=== PATIENT | female | born 1985 | race Caucasian/White ===

== ENCOUNTER 2020-10-25 15:35 | Emergency (ER) | payer MEDICAID ==
[~2020-10-25] VITALS: Ht 165.1 cm; Wt 64.0 kg
[~2020-10-25 15:35] MED LIST: PRE-NATAL VITAMINS
[2020-10-25 17:31] LABS: HCG SCREEN NEGATIVE
[2020-10-25 17:33] VITALS: BP 122/68
== END 2020-10-25 17:34 | disposition home or self-care (01) ==
LOC: ER 15:35
DX: R55 Syncope and collapse (principal); I10 Essential (primary) hypertension; E11.9 Type 2 diabetes mellitus without complications; Z98.890 Other specified postprocedural states
CPT/HCPCS: 81025; 84703; 93005; 99284

== ENCOUNTER 2021-04-01 11:00 | Emergency (ER) | payer MEDICAID ==
[~2021-04-01] VITALS: Ht 165.1 cm; Wt 89.0 kg
[2021-04-01 11:06] VITALS: BP 156/97
[2021-04-01] MEDS ORDERED: NAPR500T7 MT (11:43)
== END 2021-04-01 11:44 | disposition home or self-care (01) ==
LOC: ER 11:00
DX: G56.02 Carpal tunnel syndrome, left upper limb (principal); Z98.890 Other specified postprocedural states
CPT/HCPCS: 99281

== ENCOUNTER 2023-01-03 21:44 | Emergency (ER) | payer SELFPAY ==
[~2023-01-03] VITALS: Ht 160 cm; Wt 78.1 kg
[~2023-01-03 21:44] MED LIST changes: +NAPR500T7 MT
[2023-01-03 22:07] VITALS: BP 148/86; O2SAT 98
[2023-01-03 22:09] VITALS: PULSE 115; RESP 20; TEMP 98.4
== END 2023-01-04 04:58 | disposition left against medical advice (07) ==
LOC: ER 21:44
DX: Z53.21 Procedure and treatment not carried out due to patient leaving prior to being seen by health care provider (principal)
CPT/HCPCS: 99281

== ENCOUNTER 2023-01-25 03:36 | Emergency (ER) | payer MEDICAID ==
[~2023-01-25] VITALS: Ht 160 cm; Wt 76.0 kg
[2023-01-25 03:45] VITALS: O2SAT 100
[2023-01-25 04:19] LABS: BASOPHILS % 1.9 % (0.0-2.0); EOSINOPHILS % 0.1 % (0.0-5.0); HEMOGLOBIN. 8.4 g/dL (12.0-16.0); LYMPHOCYTES % 38.6 % (20.0-50.0); MEAN CORPUSCULAR HEMOGLOBIN 17.9 pg (28.0-32.0); MEAN CORPUSCULAR HGB CONC 29.9 g/dL (31.0-37.0); MEAN CORPUSCULAR VOLUME 59.8 fL (81.0-99.0); MONOCYTES % 11.5 % (2.0-8.0); NEUTROPHILS % 47.9 % (40.0-76.0); RED BLOOD CELL COUNT 4.68 mill/uL (4.2-5.4); RED CELL DISTRIBUTION WIDTH 23.5 % (11.6-14.6); WHITE BLOOD COUNT 5.5 x1000/uL (4.5-11.0)
[2023-01-25 04:32] LABS: CHLORIDE 97 mEq/L (98-107); INDEX HEMOLYSI 1 (1-3); INDEX ICTERIC 1 (1-4); INDEX LIPEMIC 1 (1-3); POTASSIUM 3.4 mEq/L (3.5-5.1); SODIUM 131 mEq/L (136-145)
[2023-01-25 04:34] LABS: ADD RBC MORPHOLOGY YES; DIFFERENTIAL COMMENT 1
[2023-01-25 04:42] LABS: ALANINE AMINOTRANSFERASE 82 IU/L (13-61); ALBUMIN 3.8 g/dL (3.4-5.0); ASPARTATE AMINOTRANSFERASE 92 IU/L (15-37); BILIRUBIN TOTAL 0.7 mg/dL (0.1-1.0); CALCIUM 9.2 mg/dL (8.5-10.1); CARBON DIOXIDE 22 mEq/L (21-32); CREATININE 0.4 mg/dL (0.6-1.3); GLUCOSE 298 mg/dL (70-105); PROTEIN TOTAL 8.5 g/dL (6.0-8.3); UREA NITROGEN BLOOD 3 mg/dL (7-21)
[2023-01-25] MEDS ORDERED: SODIUM CHLORIDE 0.9% 1,000 ML IV ONE (06:30)
[2023-01-25 06:59] LABS: HEMOGLOBIN 7.5 g/dL (12.0-16.0); MEAN CORPUSCULAR HEMOGLOBIN 17.1 pg (28.0-32.0); MEAN CORPUSCULAR HGB CONC 28.8 g/dL (31.0-37.0); MEAN CORPUSCULAR VOLUME 59.6 fL (81.0-99.0); PLATELET 102 x1000/uL (130-400); RED BLOOD CELL COUNT 4.37 mill/uL (4.2-5.4); RED CELL DISTRIBUTION WIDTH 22.6 % (11.6-14.6); WHITE BLOOD COUNT 4.2 x1000/uL (4.5-11.0)
[2023-01-25 07:02] LABS: CLARITY URINE CLEAR (CLEAR); COLOR URINE YELLOW (YELLOW); GLUCOSE URINE 3+ (NEGATIVE); KETONES URINE NEGATIVE (NEGATIVE); LEUKOCYTE ESTERASE URINE TRACE (NEGATIVE); NITRITE URINE NEGATIVE (NEGATIVE); OCCULT BLOOD URINE TRACE (NEGATIVE); PH URINE 5.5 (4.5-8.0); PROTEIN URINE NEGATIVE (NEGATIVE); SPECIFIC GRAVITY URINE 1.008 (1.005-1.030); UROBILINOGEN URINE 0.2 E.U./dL (0.2-1.0)
[2023-01-25 08:18] LABS: PLATELET 106 x1000/uL (130-400)
[2023-01-25 08:20] LABS: HYPOCHROMASIA 2+; MICROCYTOSIS 2+; PLATELET ESTIMATE DECREASED
[2023-01-25 08:46] LABS: BACTERIA URINE NONE SEEN; RBC URINE 0-2 /hpf (0-2); SQUAMOUS EPITHELIAL CELL URINE FEW /lpf (RARE/1+); WBC URINE 0-2 /hpf (0-2)
[2023-01-25] MEDS ORDERED: IRON1CAP3 MT (10:15)
[2023-01-25 10:30] VITALS: BP 138/91; PULSE 100; RESP 15; TEMP 98.4
== END 2023-01-25 10:32 | disposition home or self-care (01) ==
LOC: ER 04:41
DX: F10.129 Alcohol abuse with intoxication, unspecified (principal); D50.9 Iron deficiency anemia, unspecified; E11.9 Type 2 diabetes mellitus without complications; I10 Essential (primary) hypertension; Z98.890 Other specified postprocedural states; Y90.7 Blood alcohol level of 200-239 mg/100 ml
CPT/HCPCS: 80053; 81003; 81025; 80320; 82270; 83690; 85027; 85025; 36415; 74176; 76830; 76856; 93005; 96360; 96361; 99285; J7030; Z7610; G0480

== ENCOUNTER 2024-01-16 20:49 | Inpatient (IN) | payer SELFPAY ==
[~2024-01-16] VITALS: Ht 157.5 cm; Wt 68.5 kg
[~2024-01-16 20:49] MED LIST changes: +IRON1CAP3 MT
[2024-01-16] MEDS: SODIUM CHLORIDE 0.9% 1,000 ML IV ONE (21:25)
[2024-01-16 21:33] LABS: HEMATOCRIT. 39.6 % (36.0-48.0); HEMOGLOBIN. 13.2 g/dL (12.0-16.0); MEAN CORPUSCULAR HEMOGLOBIN 29.4 pg (28.0-32.0); MEAN CORPUSCULAR HGB CONC 33.3 g/dL (31.0-37.0); MEAN CORPUSCULAR VOLUME 88.2 fL (81.0-99.0); MEAN PLATELET VOLUME 9.8 fl (7.4-10.4); PLATELET 99 x1000/uL (130-400); RED BLOOD CELL COUNT 4.49 mill/uL (4.2-5.4); WHITE BLOOD COUNT 5.9 x1000/uL (4.5-11.0)
[2024-01-16 21:35] LABS: DIFFERENTIAL COMMENT 1
[2024-01-16 21:39] LABS: CHLORIDE 98 mEq/L (98-107); SODIUM 132 mEq/L (136-145)
[2024-01-16 21:40] LABS: CARBON DIOXIDE 24 mEq/L (21-32)
[2024-01-16 21:41] LABS: CALCIUM 9.5 mg/dL (8.7-10.4)
[2024-01-16 21:42] LABS: PROTHROMBIN TIME 10.7 sec (9.6-11.0)
[2024-01-16 21:45] LABS: CREATININE 0.8 mg/dL (0.6-1.0); GLUCOSE 184 mg/dL (70-105)
[2024-01-16 21:46] LABS: UREA NITROGEN BLOOD 19 mg/dL (9-23)
[2024-01-16 21:47] LABS: HCG SCREEN NEGATIVE; TROPONIN I HIGH SENSITIVITY 5 ng/L (3.0-34)
[2024-01-16 22:26] LABS: ETHANOL BLOOD < 10 mg/dL (<10); POTASSIUM 2.8 mEq/L (3.5-5.1)
[2024-01-16 22:38] LABS: *AMPHETAMINES SCREEN URINE NEGATIVE (NEGATIVE); *BARBITURATES SCREEN URINE NEGATIVE (NEGATIVE); *BENZODIAZEPINES SCREEN URINE NEGATIVE (NEGATIVE); *COCAINE SCREEN URINE NEGATIVE (NEGATIVE); METHADONE URINE SCREEN NEGATIVE (NEGATIVE); OPIATES URINE SCREEN NEGATIVE (NEGATIVE)
[2024-01-16 22:39] LABS: CANNABINOID URINE SCREEN NEGATIVE (NEGATIVE); ECSTASY MDMA SCREEN URINE NEGATIVE (NEGATIVE); PHENCYCLIDINE URINE SCREEN NEGATIVE (NEGATIVE)
[2024-01-16 22:51] LABS: ANISOCYTOSIS 1+; PLATELET ESTIMATE DECREASED
[2024-01-16] MEDS: POTASSIUM CHLORIDE 20MEQ TABLET SR PO NR (22:55)
[2024-01-16] MEDS: KCL 20MEQ/100ML PREMIX 100 ML IV SCH (22:55)
[2024-01-16 23:25] VITALS: BP_SYST 154; BP_SYST 159; BP_DIAS 84; PULSE 70; RESP 18; TEMP 37.7808; TEMP 37.808; O2SAT 100
[2024-01-17] VITALS: BP 154/84; PULSE 70; RESP 18; TEMP 37.7808; O2SAT 100
[2024-01-17] MEDS ORDERED: LISI20TA31 MT (00:08)
[2024-01-17 00:22] LABS: TROPONIN I HIGH SENSITIVITY 7 ng/L (3.0-34)
[2024-01-17 04:00] VITALS: BP 147/78; PULSE 68; RESP 18; TEMP 37.16964; O2SAT 98
[2024-01-17] MEDS ORDERED: MECLIZINE 25MG TABLET PO PRN (04:15)
[2024-01-17] MEDS: BLOOD SUGAR DIAGNOSTIC STRIP TEST SCH (06:10)
[2024-01-17 08:00] VITALS: BP 156/87; PULSE 68; RESP 18; TEMP 36.61404; O2SAT 100
[2024-01-17] MEDS: METFORMIN HCL 500MG TABLET PO SCH (09:58)
[2024-01-17] MEDS ORDERED: DEXTROSE 50% WATER 50ML SYRINGE IV PRN (11:00)
[2024-01-17 12:00] VITALS: BP 146/89; PULSE 94; RESP 19; TEMP 36.50292; O2SAT 99
[2024-01-17 12:07] LABS: HEMATOCRIT. 39.6 % (36.0-48.0); HEMOGLOBIN. 13.1 g/dL (12.0-16.0); MEAN CORPUSCULAR HEMOGLOBIN 29.3 pg (28.0-32.0); MEAN CORPUSCULAR VOLUME 88.6 fL (81.0-99.0); MEAN PLATELET VOLUME 10.4 fl (7.4-10.4); PLATELET 99 x1000/uL (130-400); RED BLOOD CELL COUNT 4.46 mill/uL (4.2-5.4); RED CELL DISTRIBUTION WIDTH 17.6 % (11.6-14.6); WHITE BLOOD COUNT 4.9 x1000/uL (4.5-11.0)
[2024-01-17 12:09] LABS: DIFFERENTIAL COMMENT 1
[2024-01-17] MEDS ORDERED: BLOOD SUGAR DIAGNOSTIC STRIP TEST SCH (12:20)
[2024-01-17 12:33] LABS: CARBON DIOXIDE 24 mEq/L (21-32); CHLORIDE 101 mEq/L (98-107); POTASSIUM 4.6 mEq/L (3.5-5.1); SODIUM 133 mEq/L (136-145)
[2024-01-17 12:34] LABS: CALCIUM 9.5 mg/dL (8.7-10.4)
[2024-01-17 12:39] LABS: GLUCOSE 188 mg/dL (70-105); TRIGLYCERIDE 75 mg/dL (0-150); UREA NITROGEN BLOOD 11 mg/dL (9-23)
[2024-01-17 12:40] LABS: CHOLESTEROL 195 mg/dL (<200); LDL CHOLESTEROL 146 mg/dL (5-100)
[2024-01-17 12:41] LABS: HDL CHOLESTEROL 47 mg/dL (>65)
[2024-01-17 12:45] LABS: CREATININE 0.5 mg/dL (0.6-1.0)
[2024-01-17] MEDS ORDERED: INSULIN LISPRO 100 UNITS/ML SUBCUT SCH (12:50)
[2024-01-17 13:22] LABS: ANISOCYTOSIS 1+; PLATELET ESTIMATE SLIGHTLY DECREASED
[2024-01-17] MEDS: INSULIN LISPRO (MEDIUM DOSE) 100 UNITS/ML SUBCUT SCH (13:56)
[2024-01-17 16:00] VITALS: BP 130/89; PULSE 96; RESP 18; TEMP 36.50292; O2SAT 98
[2024-01-17 20:00] VITALS: BP 145/77; PULSE 73; RESP 19; TEMP 36.72516; O2SAT 100
[2024-01-17] MEDS: HYDROCODONE/ACETAMINOPHEN 5/325MG TABLET PO PRN (22:32)
[2024-01-17] MEDS: ZOLPIDEM TARTRATE 5MG TABLET PO PRN (22:50)
[2024-01-18] VITALS: BP 134/93; PULSE 99; RESP 19; TEMP 37.2252; O2SAT 100
[2024-01-18 04:00] VITALS: BP 123/78; PULSE 76; RESP 19; TEMP 36.72516; O2SAT 100
[2024-01-18 06:45] LABS: CARBON DIOXIDE 24 mEq/L (21-32); CHLORIDE 104 mEq/L (98-107); POTASSIUM 3.5 mEq/L (3.5-5.1); SODIUM 136 mEq/L (136-145)
[2024-01-18 06:46] LABS: CALCIUM 9.5 mg/dL (8.7-10.4)
[2024-01-18 06:51] LABS: CREATININE 0.5 mg/dL (0.6-1.0); GLUCOSE 184 mg/dL (70-105); UREA NITROGEN BLOOD 10 mg/dL (9-23)
[2024-01-18 08:00] VITALS: BP 130/79; PULSE 85; RESP 19; TEMP 36.50292; O2SAT 100
[2024-01-18] MEDS: LISINOPRIL 20MG TABLET PO SCH (08:38)
[2024-01-18 12:00] VITALS: BP 127/83; PULSE 76; RESP 20; TEMP 36.61404; O2SAT 99
[2024-01-18] MEDS: CYCLOBENZAPRINE 10MG TABLET PO SCH (13:07)
[2024-01-18 13:08] LABS: HEMATOCRIT. 38.3 % (36.0-48.0); HEMOGLOBIN. 12.8 g/dL (12.0-16.0); MEAN CORPUSCULAR HEMOGLOBIN 29.5 pg (28.0-32.0); MEAN CORPUSCULAR HGB CONC 33.3 g/dL (31.0-37.0); MEAN CORPUSCULAR VOLUME 88.5 fL (81.0-99.0); MEAN PLATELET VOLUME 10.6 fl (7.4-10.4); PLATELET 89 x1000/uL (130-400); RED BLOOD CELL COUNT 4.33 mill/uL (4.2-5.4); RED CELL DISTRIBUTION WIDTH 17.3 % (11.6-14.6); WHITE BLOOD COUNT 4.6 x1000/uL (4.5-11.0)
[2024-01-18 13:10] LABS: DIFFERENTIAL COMMENT 1
[2024-01-18] MEDS ORDERED: NALOXONE HCL 0.4MG/ML VIAL IV PRN (13:15)
[2024-01-18 13:20] LABS: CHLORIDE 102 mEq/L (98-107); POTASSIUM 3.5 mEq/L (3.5-5.1); SODIUM 136 mEq/L (136-145)
[2024-01-18 13:21] LABS: CARBON DIOXIDE 27 mEq/L (21-32)
[2024-01-18 13:22] LABS: CALCIUM 9.9 mg/dL (8.7-10.4)
[2024-01-18 13:25] LABS: UREA NITROGEN BLOOD 12 mg/dL (9-23)
[2024-01-18 13:26] LABS: ALANINE AMINOTRANSFERASE 67 IU/L (10-49); CREATININE 0.6 mg/dL (0.6-1.0); GLUCOSE 212 mg/dL (70-105); PROTEIN TOTAL 6.8 g/dL (6.0-8.3)
[2024-01-18 13:27] LABS: ASPARTATE AMINOTRANSFERASE 57 IU/L (<34); LDL CHOLESTEROL 125 mg/dL (5-100); TRIGLYCERIDE 111 mg/dL (0-150)
[2024-01-18 13:28] LABS: ALBUMIN 4.1 g/dL (3.2-4.8); CHOLESTEROL 176 mg/dL (<200)
[2024-01-18 13:29] LABS: BILIRUBIN DIRECT 0.4 mg/dL (<=3.0); BILIRUBIN TOTAL 0.9 mg/dL (0.1-1.0); HDL CHOLESTEROL 38 mg/dL (>65)
[2024-01-18 14:10] LABS: D-DIMER 0.3 mg/L FEU (<0.50); INR 0.9; PROTHROMBIN TIME 10.3 sec (9.6-11.0)
[2024-01-18 14:40] LABS: ANISOCYTOSIS 1+; PLATELET ESTIMATE SLIGHTLY DECREASED
[2024-01-18 19:56] VITALS: BP 150/95; PULSE 83; RESP 20; TEMP 37.11408; O2SAT 100
[2024-01-18] MEDS: ATORVASTATIN CALCIUM 40MG TABLET PO SCH (21:24)
[2024-01-19] VITALS: BP 136/73; PULSE 67; RESP 20; TEMP 36.6696; O2SAT 100
[2024-01-19 02:00] VITALS: BP 129/70; PULSE 69; RESP 20; TEMP 36.89184; O2SAT 99
[2024-01-19] MEDS ORDERED: GADOTERATE MEGLUMINE 5 MMOL/10 ML VIAL IV ONE (09:58)
[2024-01-19 12:00] VITALS: BP 121/77; PULSE 88; RESP 19; TEMP 36.16956; O2SAT 98
[2024-01-19 16:00] VITALS: BP 139/79; PULSE 65; RESP 18; TEMP 36.3918; O2SAT 100
[2024-01-20 08:00] VITALS: BP 117/88; PULSE 84; RESP 17; TEMP 35.5584; O2SAT 100
[2024-01-20 12:00] VITALS: BP 146/91; PULSE 91; RESP 18; TEMP 36.61404; O2SAT 99
[2024-01-20 12:15] LABS: HEMATOCRIT. 38.6 % (36.0-48.0); HEMOGLOBIN. 12.8 g/dL (12.0-16.0); MEAN CORPUSCULAR HEMOGLOBIN 29.2 pg (28.0-32.0); MEAN CORPUSCULAR HGB CONC 33.2 g/dL (31.0-37.0); MEAN PLATELET VOLUME 10.4 fl (7.4-10.4); PLATELET 108 x1000/uL (130-400); RED BLOOD CELL COUNT 4.38 mill/uL (4.2-5.4); RED CELL DISTRIBUTION WIDTH 17.6 % (11.6-14.6); WHITE BLOOD COUNT 4.5 x1000/uL (4.5-11.0)
[2024-01-20 12:24] LABS: DIFFERENTIAL COMMENT 1
[2024-01-20 12:25] LABS: CARBON DIOXIDE 28 mEq/L (21-32); CHLORIDE 99 mEq/L (98-107); POTASSIUM 3.6 mEq/L (3.5-5.1); SODIUM 133 mEq/L (136-145)
[2024-01-20 12:26] LABS: CALCIUM 9.7 mg/dL (8.7-10.4)
[2024-01-20 12:30] LABS: CREATININE 0.5 mg/dL (0.6-1.0); GLUCOSE 187 mg/dL (70-105)
[2024-01-20 12:31] LABS: UREA NITROGEN BLOOD 6 mg/dL (9-23)
[2024-01-20 12:33] LABS: PHOSPHORUS 4.3 mg/dL (2.5-4.9)
[2024-01-20 15:51] LABS: PLATELET ESTIMATE SLIGHTLY DECREASED
[2024-01-20 16:00] VITALS: BP 112/80; PULSE 105; RESP 16; TEMP 38.50308; O2SAT 99
[2024-01-20] MEDS: ACETAMINOPHEN 325MG TABLET PO PRN (16:41)
[2024-01-20 20:00] VITALS: BP 123/84; PULSE 71; RESP 16; TEMP 36.6696; O2SAT 98
[2024-01-21] VITALS: BP 131/80; PULSE 70; RESP 19; TEMP 36.33624; O2SAT 97
[2024-01-21 04:00] VITALS: BP 123/81; PULSE 79; RESP 18; TEMP 36.28068; O2SAT 99
[2024-01-21 08:00] VITALS: BP 132/90; PULSE 91; RESP 18; TEMP 36.50292; O2SAT 98
[2024-01-21 12:00] VITALS: BP 149/88; PULSE 84; RESP 17; TEMP 36.72516; O2SAT 100
[2024-01-21] MEDS ORDERED: METF-414 MT (15:46)
[2024-01-21] MEDS ORDERED: MECL-299 MT (15:46)
[2024-01-21] MEDS ORDERED: LIP40 MT (15:46)
[2024-01-21 16:00] VITALS: BP 133/91; PULSE 96; TEMP 36.50292; O2SAT 100
[2024-01-21 16:47] VITALS: BP 133/91; PULSE 96; TEMP 97.7; O2SAT 100
== END 2024-01-21 17:30 | disposition home or self-care (01) | DRG 425 ==
LOC: ER 20:49 → 6EST 22:36 → EDBEDREQSVC 22:45 → EDBEDREQTM 22:45 → EDBEDREQ 22:45
PROVIDERS: ADMIT Internal Medicine; ATTEND Internal Medicine
PROC: 4A00X4Z Measurement of Central Nervous Electrical Activity, External Approach (ICD-10-PCS; principal; 2024-01-20)
DX: E87.6 Hypokalemia (principal); E11.9 Type 2 diabetes mellitus without complications; I10 Essential (primary) hypertension; Z82.49 Family history of ischemic heart disease and other diseases of the circulatory system; Z98.891 History of uterine scar from previous surgery; Z79.899 Other long term (current) drug therapy
CPT/HCPCS: 36415; 70551; 70552; 71045; 80048; 80061; 80076; 80305; 80320; 82962; 83036; 83735; 83880; 84100; 84484; 84703; 85025; 85379; 93005; 95816; 99285; A9577; J1815; J3480; J7030; G0480

== ENCOUNTER 2024-02-11 19:30 | Emergency (ER) | payer SELFPAY ==
[~2024-02-11] VITALS: Ht 157.5 cm; Wt 68.0 kg
[~2024-02-11 19:30] MED LIST changes: +LIP40 MT; +LISI20TA31 MT; +MECL-299 MT; +METF-414 MT
[2024-02-11 19:42] VITALS: BP 120/86; PULSE 103; RESP 16; TEMP 98.4; O2SAT 98
== END 2024-02-11 22:15 | disposition left against medical advice (07) ==
LOC: ER 19:30
DX: M79.671 Pain in right foot (principal); M79.672 Pain in left foot; Z53.21 Procedure and treatment not carried out due to patient leaving prior to being seen by health care provider

== ENCOUNTER 2024-03-04 03:40 | Inpatient (IN) | payer SELFPAY ==
[~2024-03-04] VITALS: Ht 157.5 cm; Wt 77.1 kg
[2024-03-04] MEDS ORDERED: BACITRACIN ZINC OINT UDPKT TOP ONE (06:30)
[2024-03-04] MEDS ORDERED: LIDOCAINE HCL/EPINEPHRINE 1%-EPI 1:100,000 20ML VIAL INFIL ONE (06:30)
[2024-03-04 06:50] LABS: BASOPHILS % 0.8 % (0.0-2.0); EOSINOPHILS % 0.5 % (0.0-5.0); HEMATOCRIT. 41.6 % (36.0-48.0); HEMOGLOBIN. 13.9 g/dL (12.0-16.0); LYMPHOCYTES % 15.7 % (20.0-50.0); MEAN CORPUSCULAR HEMOGLOBIN 28.5 pg (28.0-32.0); MEAN CORPUSCULAR HGB CONC 33.4 g/dL (31.0-37.0); MEAN CORPUSCULAR VOLUME 85.1 fL (81.0-99.0); MEAN PLATELET VOLUME 8.8 fl (7.4-10.4); MONOCYTES % 11.9 % (2.0-8.0); NEUTROPHILS % 71.1 % (40.0-76.0); PLATELET 217 x1000/uL (130-400); RED BLOOD CELL COUNT 4.88 mill/uL (4.2-5.4); RED CELL DISTRIBUTION WIDTH 17.5 % (11.6-14.6); WHITE BLOOD COUNT 7.7 x1000/uL (4.5-11.0)
[2024-03-04 06:57] LABS: CHLORIDE 98 mEq/L (98-107); POTASSIUM 3.6 mEq/L (3.5-5.1); SODIUM 134 mEq/L (136-145)
[2024-03-04 06:58] LABS: CARBON DIOXIDE 28 mEq/L (21-32)
[2024-03-04 06:59] LABS: CALCIUM 9.6 mg/dL (8.7-10.4)
[2024-03-04 07:03] LABS: CREATININE 0.7 mg/dL (0.6-1.0); GLUCOSE 286 mg/dL (70-105)
[2024-03-04 07:15] LABS: UREA NITROGEN BLOOD < 5 mg/dL (9-23)
[2024-03-04 07:19] LABS: PROTHROMBIN TIME 10.9 sec (9.6-11.0)
[2024-03-04] MEDS: BACITRACIN ZINC OINT UDPKT TOP NR (08:45)
[2024-03-04] MEDS: LIDOCAINE HCL/EPINEPHRINE 1%-EPI 1:100,000 20ML VIAL INFIL NR (08:45)
[2024-03-04] MEDS: AMPICILLIN SOD/SULBACTAM NA 3 G in SODIUM CHLORIDE 0.9% 100 ML IV STA (08:49)
[2024-03-04] MEDS: VANCOMYCIN 1000MG/250ML 250 ML IV STA (09:07)
[2024-03-04] MEDS ORDERED: DEXTROSE 50% WATER 50ML SYRINGE IV PRN (09:45)
[2024-03-04] MEDS ORDERED: DOCUSATE SODIUM 100MG CAPSULE PO PRN (09:45)
[2024-03-04] MEDS ORDERED: GUAIFENESIN 200MG/10ML SUGAR FREE UDC PO PRN (09:45)
[2024-03-04] MEDS ORDERED: IPRATROPIUM/ALBUTEROL 0.5-3(2.5)MG/3ML NEB HHN PRN (09:45)
[2024-03-04] MEDS ORDERED: ONDANSETRON HCL 4MG/2ML INJ IV PRN (09:45)
[2024-03-04] MEDS ORDERED: ACETAMINOPHEN 325MG TABLET PO PRN ×2 (09:45)
[2024-03-04] MEDS ORDERED: MAGNESIUM/ALUMINUM HYDROXIDE/SIMETHICONE 30ML UDC PO PRN (09:45)
[2024-03-04] MEDS: ENOXAPARIN 40MG/0.4ML SYR SUBCUT SCH (10:36)
[2024-03-04] MEDS: LISINOPRIL 20MG TABLET PO SCH (10:45)
[2024-03-04] MEDS: BLOOD SUGAR DIAGNOSTIC STRIP TEST SCH (12:14)
[2024-03-04] MEDS: INSULIN LISPRO 100 UNITS/ML SUBCUT SCH (12:20)
[2024-03-04 14:25] LABS: HCG SCREEN NEGATIVE
[2024-03-04 14:52] LABS: HIV 1/2 AB P24AG Negative (Negative)
[2024-03-04] MEDS ORDERED: AMPICILLIN SOD/SULBACTAM NA 3 G in SODIUM CHLORIDE 0.9% 100 ML IV SCH (15:00)
[2024-03-04] MEDS: KETOROLAC 15MG/ML VIAL IV PRN (16:33)
[2024-03-04 17:00] VITALS: BP 147/81; PULSE 113; RESP 18; TEMP 36.5292
[2024-03-04] MEDS: AMPICILLIN SOD/SULBACTAM NA 3 G in SODIUM CHLORIDE 0.9% 100 ML IV SCH (19:16)
[2024-03-04 20:00] VITALS: BP 142/97; PULSE 102; RESP 18; TEMP 36.3918; O2SAT 100
[2024-03-04] MEDS: FAMOTIDINE 20MG TABLET PO SCH (21:10)
[2024-03-04] MEDS: VANCOMYCIN 1000MG/250ML 250 ML IV SCH (21:10)
[2024-03-04] MEDS: ATORVASTATIN CALCIUM 40MG TABLET PO SCH (21:11)
[2024-03-04 23:04] LABS: HEPATITIS B SURFACE ANTIGEN NEGATIVE (Negative)
[2024-03-04 23:24] LABS: HEPATITIS A AB IGM NEGATIVE (Negative)
[2024-03-04 23:25] LABS: HEPATITIS B CORE AB IGM NEGATIVE (Negative); HEPATITIS C AB NON REACTIVE (Neg) (Negative)
[2024-03-05] VITALS: BP 158/94; PULSE 96; RESP 18; TEMP 36.61404; O2SAT 100
[2024-03-05] MEDS: CLONIDINE 0.1MG TABLET PO PRN (01:16)
[2024-03-05 04:00] VITALS: BP 150/96; PULSE 86; RESP 18; TEMP 36.3918; O2SAT 98
[2024-03-05 07:53] LABS: CALCIUM 9.3 mg/dL (8.7-10.4); CARBON DIOXIDE 29 mEq/L (21-32); CHLORIDE 94 mEq/L (98-107); POTASSIUM 4.1 mEq/L (3.5-5.1); SODIUM 130 mEq/L (136-145)
[2024-03-05 07:58] LABS: CREATININE 0.6 mg/dL (0.6-1.0); GLUCOSE 243 mg/dL (70-105)
[2024-03-05 07:59] LABS: T4 FREE 1.04 ng/dL (0.89-1.76); TRIGLYCERIDE 96 mg/dL (0-150); UREA NITROGEN BLOOD 9 mg/dL (9-23)
[2024-03-05 08:00] VITALS: BP 152/78; PULSE 80; RESP 19; TEMP 36.61404; O2SAT 100
[2024-03-05 08:00] LABS: CHOLESTEROL 120 mg/dL (<200); LDL CHOLESTEROL 64 mg/dL (5-100)
[2024-03-05 08:01] LABS: HDL CHOLESTEROL 38 mg/dL (>65)
[2024-03-05 08:05] LABS: BASOPHILS % 1.1 % (0.0-2.0); EOSINOPHILS % 0.6 % (0.0-5.0); HEMATOCRIT. 35.7 % (36.0-48.0); HEMOGLOBIN. 11.9 g/dL (12.0-16.0); LYMPHOCYTES % 14.2 % (20.0-50.0); MEAN CORPUSCULAR HEMOGLOBIN 28.2 pg (28.0-32.0); MEAN CORPUSCULAR HGB CONC 33.2 g/dL (31.0-37.0); MEAN CORPUSCULAR VOLUME 84.8 fL (81.0-99.0); MEAN PLATELET VOLUME 9.2 fl (7.4-10.4); MONOCYTES % 14.5 % (2.0-8.0); NEUTROPHILS % 69.6 % (40.0-76.0); PLATELET 163 x1000/uL (130-400); RED BLOOD CELL COUNT 4.21 mill/uL (4.2-5.4); RED CELL DISTRIBUTION WIDTH 17.3 % (11.6-14.6); WHITE BLOOD COUNT 5.3 x1000/uL (4.5-11.0)
[2024-03-05 12:00] VITALS: BP 152/81; PULSE 97; RESP 19; TEMP 36.9474; O2SAT 100
[2024-03-05 16:00] VITALS: BP 152/91; PULSE 80; RESP 18; TEMP 36.89184; O2SAT 99
[2024-03-05 20:00] VITALS: BP 165/95; PULSE 89; RESP 19; TEMP 36.50292; O2SAT 100
[2024-03-06] VITALS: BP 165/90; PULSE 74; RESP 19; TEMP 36.3918; O2SAT 100
[2024-03-06 04:00] VITALS: BP 161/100; PULSE 75; RESP 19; TEMP 36.44736; O2SAT 99
[2024-03-06 07:39] LABS: CHLORIDE 95 mEq/L (98-107); POTASSIUM 3.8 mEq/L (3.5-5.1); SODIUM 130 mEq/L (136-145)
[2024-03-06 07:40] LABS: CALCIUM 9.2 mg/dL (8.7-10.4); CARBON DIOXIDE 27 mEq/L (21-32)
[2024-03-06 07:45] LABS: CREATININE 0.6 mg/dL (0.6-1.0); GLUCOSE 277 mg/dL (70-105)
[2024-03-06 07:46] LABS: UREA NITROGEN BLOOD 10 mg/dL (9-23)
[2024-03-06 08:00] VITALS: BP 150/75; PULSE 65; RESP 19; TEMP 36.44736; O2SAT 100
[2024-03-06] MEDS: VANCOMYCIN 1.25GM PMX (XELLIA) 250 ML IV SCH (10:00)
[2024-03-06 12:00] VITALS: BP 147/67; PULSE 72; RESP 18; TEMP 36.61404; O2SAT 100
[2024-03-06 16:00] VITALS: BP 150/96; PULSE 83; RESP 16; TEMP 36.50292; O2SAT 99
[2024-03-06 20:00] VITALS: BP 146/95; PULSE 75; RESP 18; TEMP 36.3918; O2SAT 100
[2024-03-07] VITALS: BP 157/100; PULSE 82; RESP 18; TEMP 36.61404; O2SAT 98
[2024-03-07 04:00] VITALS: BP 162/108; PULSE 90; RESP 18; TEMP 36.55848; O2SAT 100
[2024-03-07 08:00] VITALS: BP 164/97; PULSE 82; RESP 18; TEMP 36.72516; O2SAT 97
[2024-03-07] MEDS ORDERED: SULF1TAB48 MT (09:06)
[2024-03-07 11:53] VITALS: BP 133/87; PULSE 79; TEMP 98.7; O2SAT 100
[2024-03-07 12:02] LABS: HEMATOCRIT. 37.9 % (36.0-48.0); HEMOGLOBIN. 12.5 g/dL (12.0-16.0); MEAN CORPUSCULAR HEMOGLOBIN 28.2 pg (28.0-32.0); MEAN CORPUSCULAR HGB CONC 33.1 g/dL (31.0-37.0); MEAN CORPUSCULAR VOLUME 85.2 fL (81.0-99.0); PLATELET 189 x1000/uL (130-400); RED BLOOD CELL COUNT 4.45 mill/uL (4.2-5.4); RED CELL DISTRIBUTION WIDTH 17.2 % (11.6-14.6); WHITE BLOOD COUNT 5.1 x1000/uL (4.5-11.0)
[2024-03-07 12:11] LABS: CHLORIDE 97 mEq/L (98-107); POTASSIUM 4.5 mEq/L (3.5-5.1); SODIUM 131 mEq/L (136-145)
[2024-03-07 12:12] LABS: CARBON DIOXIDE 28 mEq/L (21-32)
[2024-03-07 12:13] LABS: CALCIUM 9.8 mg/dL (8.7-10.4)
[2024-03-07 12:17] LABS: CREATININE 0.6 mg/dL (0.6-1.0); GLUCOSE 321 mg/dL (70-105)
[2024-03-07 12:18] LABS: UREA NITROGEN BLOOD 10 mg/dL (9-23)
[2024-03-07 12:20] LABS: DIFFERENTIAL COMMENT 1
[2024-03-07 15:49] LABS: ANISOCYTOSIS 1+; GIANT PLATELETS 1+; PLATELET ESTIMATE NORMAL
== END 2024-03-07 13:40 | disposition home or self-care (01) | DRG 385 ==
LOC: ER 03:40 → 5WST 08:20 → EDBEDREQ 08:29 → 6EST 15:32
PROVIDERS: ADMIT Internal Medicine; ATTEND Internal Medicine
PROC: 0H9U3ZZ Drainage of Left Breast, Percutaneous Approach (ICD-10-PCS; principal; 2024-03-04)
DX: N61.1 Abscess of the breast and nipple (principal); E11.65 Type 2 diabetes mellitus with hyperglycemia; E78.00 Pure hypercholesterolemia, unspecified; I10 Essential (primary) hypertension; Z83.3 Family history of diabetes mellitus; Z98.891 History of uterine scar from previous surgery
CPT/HCPCS: 36415; 71260; 80048; 80061; 80202; 82962; 83036; 84145; 84439; 84443; 84703; 85025; 86705; 86709; 87070; 87340; 97161; 97165; 99285; J0295; J1650; J1815; J1885; J3370; J3490; J7050